=== PATIENT | female | born 1990 | race African-American/Black ===

== ENCOUNTER 2016-05-05 15:13 | Emergency (ER) | payer BC ==
[2016-05-05 15:19] VITALS: BP 148/101
--- NOTE | 2016-05-05 16:05 | ED ---
Skin Complaint - HPI Summary HPI Summary: 25 F presents with right thumb swelling near nail for 2 days. She states she had a hang nail there and pulled it and started to notice some swelling at the area. She has not taken anything for her pain. She has full ROM of her finger. She denies any numbness or tingling. She is right handed. - History of Current Complaint Chief Complaint: EDExtremityUpper Time Seen by Provider: 05/05/16 15:33 Stated Complaint: POSS CYST ON FINGER Hx Last Menstrual Period: 06/13/15 Pain Intensity: 8 - Additional Pertinent History Primary Care Physician: [id number] - Allergy/Home Medications Allergies/Adverse Reactions: Allergies Allergy/AdvReac Type Severity Reaction Status Date / Time No Known Allergies Allergy Verified 07/02/15 15:58 PMH/Surg Hx/FS Hx/Imm Hx Endocrine/Hematology History: Reports: Hx Diabetes - type I Denies: Hx Anemia Cardiovascular History: Reports: Hx Hypercholesterolemia, Hx Hypertension Denies: Hx Aneurysm, Hx Angina, Hx Angioplasty, Hx Auto Implanted Cardiovert Defib, Hx Pacemaker/ICD Respiratory History: Reports: Hx Asthma GI History: Denies: Hx Jaundice Sensory History: Reports: Hx Contacts or Glasses Denies: Hx Hearing Aid Opthamlomology History: Reports: Hx Contacts or Glasses Neurological History: Reports: Hx Migraine - optical migraines Denies: Hx Dementia, Hx Developmental Delay, Hx Headaches, Hx Nerve Disease, Hx Seizures, Hx Spinal Cord Injury, Hx Transient Ischemic Attacks (TIA), Other Neuro Impairments/Disorders Psychiatric History: Reports: Hx Anxiety, Hx Depression Denies: Hx Panic Disorder - Cancer History Hx Chemotherapy: No Hx Radiation Therapy: No Hx Palliative Cancer Treatment: No - Surgical History Surgery Procedure, Year, and Place: cyst removal from skin of face and skin of lower back Hx Anesthesia Reactions: No Infectious Disease History: No Infectious Disease History: Denies: Hx Clostridium Difficile, Hx Hepatitis, Hx Human Immunodeficiency Virus (HIV), Hx of Known/Suspected MRSA, Hx Shingles, Hx Tuberculosis, History Other Infectious Disease, Traveled Outside the [place] in Last 30 Days - Family History Known Family History: Positive: Cardiac Disease, Diabetes - Social History Alcohol Use: Daily Alcohol Amount: a lot Substance Use Type: Reports: Marijuana Smoking Status (MU): Light Every Day Tobacco Smoker Type: Cigarettes Amount Used/How Often: 2-3/day Have You Smoked in the Last Year: No Review of Systems Negative: Fever Negative: Chest Pain Negative: Shortness Of Breath Positive: Other - swelling near right thumb nail All Other Systems Reviewed And Are Negative: Yes Physical Exam Triage Information Reviewed: Yes Vital Signs On Initial Exam: Initial Vitals Temp Pulse Resp BP Pulse Ox 97.9 F 119 18 148/101 98 05/05/16 15:16 05/05/16 15:16 05/05/16 15:16 05/05/16 15:16 05/05/16 15:16 Vital Signs Reviewed: Yes Appearance: Positive: Well-Appearing Skin: Positive: Warm, Dry, Other - paronchyia of right thumb Head/Face: Positive: Normal Head/Face Inspection Eyes: Positive: Normal, Conjunctiva Clear Respiratory/Lung Sounds: Positive: Clear to Auscultation, Breath Sounds Present Cardiovascular: Positive: Normal, RRR Musculoskeletal: Positive: Strength/ROM Intact - of right thumb, Other - good capillary refill, <2 secs capillary refill Procedures - Incision and Drainage Site: right thumn Anesthesia: Digital Instrument(s): Scalpel Diagnostics - Vital Signs Vital Signs Temp Pulse Resp BP Pulse Ox 05/05/16 15:16 97.9 F 119 18 148/101 98 - Laboratory Lab Statement: Any lab studies that have been ordered have been reviewed, and results considered in the medical decision making process. Course/Dx - Course Course Of Treatment: 25F presents with right thumb swelling near nail s/p pulling a handnail. On exam has paronchyia. use digital block and made incision and expressed small amount of pus. told to do warm soaks of area. told if any signs of infection occur to return. patient understands and agrees with plan - Differential Diagnoses - Skin Complaint Differential Diagnoses: Abscess, Cellulitis, Other - paronychia - Diagnoses Provider Diagnoses: Paronychia Discharge - Discharge Plan Condition: Good Disposition: HOME Patient Education Materials: Paronychia (ED) Referrals: Bigg Reyes NP [Primary Care Provider] - Additional Instructions: Soak finger twice a day Take ibuprofen for pain every 6 hours Return to ED if develop fever, spreading redness or any new or worsening symptoms
== END 2016-05-05 16:32 | disposition home or self-care (01) ==
LOC: ED 15:13
DX: L03.011 Cellulitis of right finger (principal); R60.0 Localized edema; F17.210 Nicotine dependence, cigarettes, uncomplicated
CPT/HCPCS: 10060; 99282

== ENCOUNTER 2016-07-07 23:56 | Emergency (ER) | payer BC ==
[2016-07-08] MEDS ORDERED: Ondansetron INJ* 2 MG/ML VIAL IV ONE (00:38)
[2016-07-08] MEDS ORDERED: NS 0.9% 1000 ML* 3,000 ML IV ONE (00:38)
[2016-07-08 01:09] LABS: Hematocrit 41 % (35-47); Hemoglobin 13.4 g/dl (12.0-16.0); Mean Corpuscular HGB Conc 33 g/dl (31-36); Mean Corpuscular Hemoglobin 29 pg (27-31); Mean Corpuscular Volume 89 fL (80-97); Mean Platelet Volume 10 um3 (7.4-10.4); Red Blood Count 4.56 10^6/ul (4.0-5.4); Red Cell Distribution Width 13 % (10.5-15); White Blood Count 6.7 10^3/ul (3.5-10.8)
[2016-07-08 01:18] LABS: Alcohol 12 mg/dL (<10)
[2016-07-08 01:19] LABS: ALT 13 U/L (7-52); Albumin 3.5 g/dL (3.2-5.2); Alkaline Phosphatase 64 U/L (34-104); BUN/Creatinine Ratio 21.2 (8-20); Blood Urea Nitrogen 14 mg/dL (6-24); CO2 Carbon Dioxide 20 mmol/L (22-32); Calcium 8.9 mg/dL (8.6-10.3); Chloride 97 mmol/L (101-111); EGFR African American 141.5 (>60); Globulin 3.5 g/dL (2-4)
[2016-07-08 01:52] LABS: Urine Bacteria Absent (Absent); Urine Bilirubin Negative (Negative); Urine Glucose 3+(>=500 mg/dL) (Negative); Urine Nitrite Negative (Negative)
[2016-07-08 02:00] LABS: Glucose 563 mg/dL (70-100)
[2016-07-08] MEDS ORDERED: Insulin REGULAR(*) 1 UNITS UNIT SUBCUT ONE (02:11)
[2016-07-08] MEDS ORDERED: KCL 10 MEQ/50 ML IVPREMIX* 10 MEQ/50 ML BAG IV ONE (02:11)
[2016-07-08 02:28] LABS: BUN/Creatinine Ratio 23.3 (8-20); Calcium 8.7 mg/dL (8.6-10.3); EGFR Non-African American 122.8 (>60); Potassium 4.1 mmol/L (3.5-5.0)
--- NOTE | 2016-07-08 03:02 | ED ---
HPI Diabetic - HPI Summary HPI Summary: Pt here w/ "not feeling well", pain from chest down, especially back and legs. Nausea w/o vomiting. Increased urination. Type 1 diabetic - has not been compliant recently w/ insulin d/t difficulty affording medication. UTI a few weeks ago - tx'd w/ cipro and felt better. Notes also indicate a vaginal infection - reports treating this as well w/ relief of sx. No other illness, injury or infection to report. - History Of Current Complaint Chief Complaint: EDDiabeticProb Time Seen by Provider: 07/08/16 00:33 Hx Obtained From: Patient - Allergies/Home Medications Allergies/Adverse Reactions: Allergies Allergy/AdvReac Type Severity Reaction Status Date / Time No Known Allergies Allergy Verified 07/02/15 15:58 PMH/Surg Hx/FS Hx/Imm Hx Endocrine/Hematology History: Reports: Hx Diabetes - type I Denies: Hx Anemia Cardiovascular History: Reports: Hx Hypercholesterolemia - no meds, Hx Hypertension - no meds, poorly controlled Denies: Hx Aneurysm, Hx Angina, Hx Angioplasty, Hx Auto Implanted Cardiovert Defib, Hx Pacemaker/ICD Respiratory History: Reports: Hx Asthma - worse w/ cold air exposure and when she has tachycardia GI History: Denies: Hx Jaundice History: Reports: Other Problems/Disorders - dysmenorrhea, "clots" Sensory History: Reports: Hx Contacts or Glasses Denies: Hx Hearing Aid Opthamlomology History: Reports: Hx Contacts or Glasses Neurological History: Reports: Hx Migraine - optical migraines Denies: Hx Dementia, Hx Developmental Delay, Hx Headaches, Hx Nerve Disease, Hx Seizures, Hx Spinal Cord Injury, Hx Transient Ischemic Attacks (TIA), Other Neuro Impairments/Disorders Psychiatric History: Reports: Hx Anxiety, Hx Depression Denies: Hx Panic Disorder - Cancer History Hx Chemotherapy: No Hx Radiation Therapy: No Hx Palliative Cancer Treatment: No - Surgical History Surgery Procedure, Year, and Place: cyst removal from skin of face and skin of lower back Hx Anesthesia Reactions: No Infectious Disease History: Yes Infectious Disease History: Denies: Hx Clostridium Difficile, Hx Hepatitis, Hx Human Immunodeficiency Virus (HIV), Hx of Known/Suspected MRSA, Hx Shingles, Hx Tuberculosis, History Other Infectious Disease, Traveled Outside the [place] in Last 30 Days - Family History Known Family History: Positive: Cardiac Disease, Diabetes, Other - Mom - lupus - Social History Occupation: Employed Full-time - [employer] Alcohol Use: Daily - "I don't get drunk" Alcohol Amount: a lot Hx Substance Use: No - pt denies drug use tonight Substance Use Type: Reports: Marijuana Hx Tobacco Use: Yes Smoking Status (MU): Current Every Day Smoker Type: Cigarettes Amount Used/How Often: <1 PPD Have You Smoked in the Last Year: No Review of Systems Positive: Fatigue ENT: Negative Negative: Sore Throat, Ear Ache, Nasal Discharge Negative: Chest Pain Negative: Shortness Of Breath Positive: Nausea. Negative: Abdominal Pain, Vomiting, Diarrhea Positive: see HPI Musculoskeletal: Other - see HPI Positive: Headache Positive: Anxious All Other Systems Reviewed And Are Negative: Yes Physical Exam Triage Information Reviewed: Yes Vital Signs On Initial Exam: Initial Vitals Temp Pulse Resp BP Pulse Ox 98.4 F 123 32 209/136 100 07/07/16 23:57 07/07/16 23:57 07/07/16 23:57 07/07/16 23:57 07/07/16 23:57 Vital Signs Reviewed: Yes Appearance: Positive: Ill-Appearing - tearful, lying in bed w/ lights off, acetone breath, Pain Distress, Obese Skin: Positive: Warm, Dry Head/Face: Positive: Normal Head/Face Inspection Eyes: Positive: Normal, EOMI ENT: Positive: Hearing grossly normal Respiratory/Lung Sounds: Positive: Clear to Auscultation, Breath Sounds Present Cardiovascular: Positive: Pulses are Symmetrical in both Upper and Lower Extremities, Tachycardia, S1, S2. Negative: Murmur, Rub, Leg Edema Left - NTTP , Leg Edema Right Abdomen Description: Positive: Nontender, Soft Bowel Sounds: Positive: Present Musculoskeletal: Positive: Normal, Strength/ROM Intact Neurological: Positive: Normal, Sensory/Motor Intact, Alert, Oriented to Person Place, Time, CN Intact II-III Psychiatric: Positive: Anxious - Sharmin Coma Scale Coma Scale Total: 15 Diagnostics - Vital Signs Vital Signs Temp Pulse Resp BP Pulse Ox 07/08/16 02:30 122 96 07/08/16 02:00 161/108 07/08/16 01:30 123 98 07/08/16 01:00 120 161/115 97 07/08/16 00:39 121 98 07/08/16 00:34 170/117 07/08/16 00:01 98.3 F 123 32 209/136 100 07/07/16 23:57 98.4 F 123 32 209/136 100 - Laboratory Lab Results: Lab Results 07/08/16 07/08/16 07/08/16 Range/Units 00:25 00:25 00:25 WBC 6.7 (3.5-10.8) 10^3/ul RBC 4.56 (4.0-5.4) 10^6/ul Hgb 13.4 (12.0-16.0) g/dl Hct 41 (35-47) % MCV 89 (80-97) fL MCH 29 (27-31) pg MCHC 33 (31-36) g/dl RDW 13 (10.5-15) % Plt Count 313 (150-450) 10^3/ul MPV 10 (7.4-10.4) um3 Neut % (Auto) 51.9 (38-83) % Lymph % (Auto) 39.2 (25-47) % [place] % (Auto) 6.0 (1-9) % Eos % (Auto) 1.5 (0-6) % Baso % (Auto) 1.4 (0-2) % Absolute Neuts (auto) 3.5 (1.5-7.7) 10^3/ul Absolute Lymphs (auto) 2.6 (1.0-4.8) 10^3/ul Absolute Monos (auto) 0.4 (0-0.8) 10^3/ul Absolute Eos (auto) 0.1 (0-0.6) 10^3/ul Absolute Basos (auto) 0.1 (0-0.2) 10^3/ul Absolute Nucleated RBC 0.01 10^3/ul Nucleated RBC % 0.1 Sodium 130 L (133-145) mmol/L Potassium TNP Chloride 97 L (101-111) mmol/L Carbon Dioxide 20 L (22-32) mmol/L Anion Gap TNP BUN 14 (6-24) mg/dL Creatinine 0.66 (0.51-0.95) mg/dL Est GFR ( Amer) 141.5 (>60) Est GFR (Non-Af Amer) 110.0 (>60) BUN/Creatinine Ratio 21.2 H (8-20) Glucose 563 H* (70-100) mg/dL Lactic Acid 2.5 H* (0.5-2.0) mmol/L Calcium 8.9 (8.6-10.3) mg/dL Phosphorus 4.0 (2.5-5.0) mg/dL Total Bilirubin 0.20 (0.2-1.0) mg/dL AST TNP ALT 13 (7-52) U/L Alkaline Phosphatase 64 (34-104) U/L Total Protein 7.0 (6.4-8.9) g/dL Albumin 3.5 (3.2-5.2) g/dL Globulin 3.5 (2-4) g/dL Albumin/Globulin Ratio 1.0 (1-3) Beta HCG, Quant < 0.60 mIU/mL Urine Color Urine Appearance Urine pH (5-9) Ur Specific [place] (1.010-1.030) Urine Protein (Negative) Urine Ketones (Negative) Urine Blood (Negative) Urine Nitrate (Negative) Urine Bilirubin (Negative) Urine Urobilinogen (Negative) Ur Leukocyte Esterase (Negative) Urine WBC (Auto) (Absent) Urine RBC (Auto) (Absent) Ur Squamous Epith Cells (Absent) Urine Bacteria (Absent) Urine Glucose (Negative) Serum Alcohol 12 H (<10) mg/dL 07/08/16 07/08/16 07/08/16 Range/Units 01:30 01:30 01:42 WBC (3.5-10.8) 10^3/ul RBC (4.0-5.4) 10^6/ul Hgb (12.0-16.0) g/dl Hct (35-47) % MCV (80-97) fL MCH (27-31) pg MCHC (31-36) g/dl RDW (10.5-15) % Plt Count (150-450) 10^3/ul MPV (7.4-10.4) um3 Neut % (Auto) (38-83) % Lymph % (Auto) (25-47) % [place] % (Auto) (1-9) % Eos % (Auto) (0-6) % Baso % (Auto) (0-2) % Absolute Neuts (auto) (1.5-7.7) 10^3/ul Absolute Lymphs (auto) (1.0-4.8) 10^3/ul Absolute Monos (auto) (0-0.8) 10^3/ul Absolute Eos (auto) (0-0.6) 10^3/ul Absolute Basos (auto) (0-0.2) 10^3/ul Absolute Nucleated RBC 10^3/ul Nucleated RBC % Sodium 130 L (133-145) mmol/L Potassium 4.1 4.1 Chloride 99 L (101-111) mmol/L Carbon Dioxide 21 L (22-32) mmol/L Anion Gap 10 BUN 14 (6-24) mg/dL Creatinine 0.60 (0.51-0.95) mg/dL Est GFR ( Amer) 158.0 (>60) Est GFR (Non-Af Amer) 122.8 (>60) BUN/Creatinine Ratio 23.3 H (8-20) Glucose 543 H* (70-100) mg/dL Lactic Acid (0.5-2.0) mmol/L Calcium 8.7 (8.6-10.3) mg/dL Phosphorus (2.5-5.0) mg/dL Total Bilirubin (0.2-1.0) mg/dL AST 11 L ALT (7-52) U/L Alkaline Phosphatase (34-104) U/L Total Protein (6.4-8.9) g/dL Albumin (3.2-5.2) g/dL Globulin (2-4) g/dL Albumin/Globulin Ratio (1-3) Beta HCG, Quant mIU/mL Urine Color Colorless Urine Appearance Clear Urine pH 6.0 (5-9) Ur Specific [place] 1.021 (1.010-1.030) Urine Protein 1+(30 mg/dl) H (Negative) Urine Ketones Trace H (Negative) Urine Blood 1+ H (Negative) Urine Nitrate Negative (Negative) Urine Bilirubin Negative (Negative) Urine Urobilinogen Negative (Negative) Ur Leukocyte Esterase Negative (Negative) Urine WBC (Auto) Trace(0-5/hpf) (Absent) Urine RBC (Auto) 1+(3-5/hpf) H (Absent) Ur Squamous Epith Cells Present H (Absent) Urine Bacteria Absent (Absent) Urine Glucose 3+(>=500 mg/dl) H (Negative) Serum Alcohol (<10) mg/dL Result Diagrams: 07/08/16 00:07/08/16 01:30 Lab Statement: Any lab studies that have been ordered have been reviewed, and results considered in the medical decision making process. Re-Evaluation - Re-Evaluation First Eval Change: Improved - nausea improved - pt drank gingerale w/o difficulty; still has myalgias - WILLIAMSON better Diabetic Course/Dx - Course Course Of Treatment: Type 1 diabetic pt presents w/ generalized pain, WILLIAMSON, nausea and admitted poor compliance w/ insulin. Labs reveal elevated glucose ( 563) w/o ketoacidosis. IVF, K and insulin started. Nausea improved with IV zofran. Will order pain medication and continue IVF w/ repeat glucose and K checks. Discussed w/ pt importance of compliance and explaining to PCP she can' t afford medication to see if there are any financial programs available. Signed out to Dr. Coleman @ 3:05am. - Diagnoses Provider Diagnoses: Poorly controlled type 1 diabetes mellitus - Physician Notifications Discussed Care of Patient With: Dr. Coleman Discharge - Discharge Plan Patient Education Materials: Type 1 Diabetes in Adults (ED) Forms: *Work Release Referrals: Bigg Reyes, MICHAEL [Primary Care Provider] - Additional Instructions: Follow-up with manager product support tomorrow Stay hydrated - avoid concentrated sweets, alcohol, etc Take insulin as directed by manager product support *If your pain, weakness or high glucose return, come back to ED NOTE: your blood pressure is elevated and poorly controlled. Please discuss with PCP to asses appropriate intervention. *if you develop headache, chest pain, return to ED
[2016-07-08] MEDS ORDERED: Ibuprofen TAB* 600 MG PO ONE (03:24)
[2016-07-08 04:51] VITALS: BP 160/94
[2016-07-08 22:47] LABS: Sodium 134 mmol/L (133-145)
== END 2016-07-08 04:51 | disposition home or self-care (01) ==
LOC: ED 23:56
DX: E10.65 Type 1 diabetes mellitus with hyperglycemia (principal); R11.0 Nausea; R51 Headache; R52 Pain, unspecified
CPT/HCPCS: 36415; 80048; 80053; 80320; 81003; 81015; 83605; 84100; 84702; 85025; 93005; 96374; 99283; A9270-GY; G0480; J2405; J3480

== ENCOUNTER 2016-08-05 16:44 | Emergency (ER) | payer BC ==
[2016-08-05] MEDS ORDERED: Ketorolac INJ* 60 MG/2 ML VIAL ONE (18:02)
[2016-08-05] MEDS ORDERED: Ketorolac INJ* 60 MG/2 ML VIAL IM ONE (18:07)
--- NOTE | 2016-08-05 18:10 | ED ---
Lower Extremity - HPI Summary HPI Summary: Patient presents with 2 months of guzman pain that began without known incident or trauma. The pain is along the anterior guzman from the knee to the ankle and is worsened with dorsiflexion. She has no symptoms at rest. She denies calf pain , swelling or redness. No N/T. - History of Current Complaint Chief Complaint: EDExtremityLower Stated Complaint: BOTH LEG PAIN Hx Obtained From: Patient Hx Last Menstrual Period: 06/13/15 Mechanism Of Injury: Unknown Onset/Duration: Still Present Severity Initially: Mild Severity Currently: Moderate Pain Intensity: 6 Timing: Intermittent - when walking Character Of Pain: Aching Associated Signs And Symptoms: Positive: Negative Aggravating Factor(s): Ambulation Alleviating Factor(s): Rest Able to Bear Weight: Yes - Allergies/Home Medications Allergies/Adverse Reactions: Allergies Allergy/AdvReac Type Severity Reaction Status Date / Time Shellfish Allergy Allergy Anaphylatic Verified 08/05/16 16:47 Shock PMH/Surg Hx/FS Hx/Imm Hx Endocrine/Hematology History: Reports: Hx Diabetes - type I Denies: Hx Anemia Cardiovascular History: Reports: Hx Hypercholesterolemia - no meds, Hx Hypertension - no meds, poorly controlled Denies: Hx Aneurysm, Hx Angina, Hx Angioplasty, Hx Auto Implanted Cardiovert Defib, Hx Pacemaker/ICD Respiratory History: Reports: Hx Asthma - worse w/ cold air exposure and when she has tachycardia GI History: Denies: Hx Jaundice History: Reports: Other Problems/Disorders - dysmenorrhea, "clots" Sensory History: Reports: Hx Contacts or Glasses Denies: Hx Hearing Aid Opthamlomology History: Reports: Hx Contacts or Glasses Neurological History: Reports: Hx Migraine - optical migraines Denies: Hx Dementia, Hx Developmental Delay, Hx Headaches, Hx Nerve Disease, Hx Seizures, Hx Spinal Cord Injury, Hx Transient Ischemic Attacks (TIA), Other Neuro Impairments/Disorders Psychiatric History: Reports: Hx Anxiety, Hx Depression Denies: Hx Panic Disorder - Cancer History Hx Chemotherapy: No Hx Radiation Therapy: No Hx Palliative Cancer Treatment: No - Surgical History Surgery Procedure, Year, and Place: cyst removal from skin of face and skin of lower back Hx Anesthesia Reactions: No Infectious Disease History: No Infectious Disease History: Denies: Hx Clostridium Difficile, Hx Hepatitis, Hx Human Immunodeficiency Virus (HIV), Hx of Known/Suspected MRSA, Hx Shingles, Hx Tuberculosis, History Other Infectious Disease, Traveled Outside the [place] in Last 30 Days - Family History Known Family History: Positive: Cardiac Disease, Diabetes, Other - Mom - lupus - Social History Occupation: Employed Full-time Lives: With Family Alcohol Use: Daily Alcohol Amount: a lot Hx Substance Use: No - pt denies drug use tonight Substance Use Type: Reports: Marijuana Hx Tobacco Use: Yes Smoking Status (MU): Current Every Day Smoker Type: Cigarettes Amount Used/How Often: <1 PPD Have You Smoked in the Last Year: No Cessation Counseling: Patient Advised to Stop Review of Systems Positive: Myalgia. Negative: Decreased ROM, Edema Negative: Bruising Negative: Weakness, Paresthesia, Numbness All Other Systems Reviewed And Are Negative: Yes Physical Exam Triage Information Reviewed: Yes Vital Signs On Initial Exam: Initial Vitals Temp Pulse Resp BP Pulse Ox 97.8 F 110 16 155/97 99 08/05/16 16:45 08/05/16 16:45 08/05/16 16:45 08/05/16 16:45 08/05/16 16:45 Vital Signs Reviewed: Yes Appearance: Positive: Well-Appearing, No Pain Distress, Obese Skin: Positive: Warm, Skin Color Reflects Adequate Perfusion, Dry, Soft Head/Face: Positive: Normal Head/Face Inspection Eyes: Positive: EOMI, VIVIANE, Conjunctiva Clear ENT: Positive: Hearing grossly normal Respiratory/Lung Sounds: Positive: Breath Sounds Present Cardiovascular: Positive: RRR Musculoskeletal: Positive: Strength/ROM Intact, Pain @ - TTP over bilateral anterior tibial region L>R. Negative: Amauri Sign Left, Amauri Sign Right, Edema Left, Edema Right Neurological: Positive: Sensory/Motor Intact, Alert, Oriented to Person Place, Time, NV Bundle Intact Distally, Normal Gait Psychiatric: Positive: Affect/Mood Appropriate AVPU Assessment: Alert - Sharmin Coma Scale Coma Scale Total: 15 Diagnostics - Vital Signs Vital Signs Temp Pulse Resp BP Pulse Ox 08/05/16 16:47 97.8 F 110 16 155/97 100 08/05/16 16:45 97.8 F 110 16 155/97 99 - Laboratory Lab Statement: Any lab studies that have been ordered have been reviewed, and results considered in the medical decision making process. Lower Extremity Course/Dx - Diagnoses Differential Diagnosis/HQI/PQRI: Positive: Arthritis, Bursitis, Cellulitis, Contusion, Fracture (Closed), Sprain, Strain Provider Diagnoses: Strain of tibialis anterior muscle Discharge - Discharge Plan Condition: Stable Disposition: HOME Patient Education Materials: Guzman Splints (ED) Referrals: Bigg Reyes NP [Primary Care Provider] - Additional Instructions: Please begin taking 600mg of ibuprofen three times daily with meals tomorrow evening with dinner for the next 5-7 days. Rest your legs when you can and ice your shins several times daily. Call your primary care providers office to establish care with a new provider for a follow-up appointment. Return to the emergency department if symptoms worsen.
[2016-08-05 18:52] VITALS: BP 160/104
== END 2016-08-05 18:45 | disposition home or self-care (01) ==
LOC: ED 16:44
DX: S86.219A Strain of muscle(s) and tendon(s) of anterior muscle group at lower leg level, unspecified leg, initial encounter (principal); E10.9 Type 1 diabetes mellitus without complications; X58.XXXA Exposure to other specified factors, initial encounter; Y93.9 Activity, unspecified; Y92.9 Unspecified place or not applicable
CPT/HCPCS: 99281; J1885

== ENCOUNTER 2016-09-03 17:07 | Emergency (ER) | payer BC ==
--- NOTE | 2016-09-03 20:32 | RAD ---
HISTORY: Left lower extremity pain COMPARISONS: None relevant TECHNIQUE: Multiple transverse and longitudinal ultrasound images were obtained of the left lower extremity from the level of the common femoral vein inferiorly through to the infrapopliteal veins using grayscale, color Doppler, and spectral Doppler imaging with and without compression and with augmentation. Comparison images were obtained of the contralateral common femoral vein. FINDINGS: VEINS: The venous system of the left lower extremity is compressible throughout its course, with normal flow on color Doppler imaging and normal response to augmentation on spectral Doppler imaging. SOFT TISSUES: There are multiple left inguinal lymph nodes measuring up to 0.9 cm in short axis OTHER FINDINGS: None. IMPRESSION: 1. NO LEFT LOWER EXTREMITY DEEP VEIN THROMBOSIS 2. MULTIPLE LEFT INGUINAL LYMPH NODES AT THE UPPER LIMITS OF NORMAL IN SIZE
[2016-09-03] MEDS ORDERED: Pregabalin CAP(*) 50 MG PO ONE (20:45)
--- NOTE | 2016-09-03 20:52 | ED ---
Mario Morrissey Auryana, scribed for Bonny Mcwilliams MD on 09/03/16 at 1806 . Lower Extremity - HPI Summary HPI Summary: 25 year old female presents with LLE pain starting 1 month worse since today. Patient is located at the inner left thigh and is characterizes as a burning pain. She reports that the pain sometimes radiates through her back. She also has right foot numbness and has not been able to sleep for the last week. The pain is improved with pressure from ambulation and made worse when sitting or resting. Patient also c/o of right ear clogging. PMHx is significant for DMI ( insulin requiring - blood sugar usually 200's), and HTN. She denies any history of sciatica or any back injuries. SHx is significant for alcohol and tobacco but denies any recreational use. FHx is significant for DM, and HTN. 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 - History of Current Complaint Chief Complaint: EDExtremityLower Stated Complaint: LT LEG PAIN Time Seen by Provider: 09/03/16 17:54 Hx Obtained From: Patient Hx Last Menstrual Period: 06/13/15 Mechanism Of Injury: Unknown - NONE Onset of Pain: Days - 31 DAYS Onset/Duration: Worse Since - TODAY - STARTING 1 MONTH AGO Severity Initially: Moderate Severity Currently: Severe Pain Intensity: 8 Pain Scale Used: 0-10 Numeric Timing: Constant Location: Is Discrete @ - LLE and sometimes radiates into the back Associated Signs And Symptoms: Positive: Other - RIHGT FOOT NUMBNESS, RIGHT EAR CLOGGING Aggravating Factor(s): Other - REST/ NO MOVEMENT Alleviating Factor(s): Other - PRESSURE OF AMBULATION Able to Bear Weight: Yes - Allergies/Home Medications Allergies/Adverse Reactions: Allergies Allergy/AdvReac Type Severity Reaction Status Date / Time Shellfish Allergy Allergy Anaphylatic Verified 08/05/16 16:47 Shock PMH/Surg Hx/FS Hx/Imm Hx Endocrine/Hematology History: Reports: Hx Diabetes - type I Denies: Hx Anemia Cardiovascular History: Reports: Hx Hypercholesterolemia - no meds, Hx Hypertension - no meds, poorly controlled Denies: Hx Aneurysm, Hx Angina, Hx Angioplasty, Hx Auto Implanted Cardiovert Defib, Hx Pacemaker/ICD Respiratory History: Reports: Hx Asthma - worse w/ cold air exposure and when she has tachycardia GI History: Denies: Hx Jaundice History: Reports: Other Problems/Disorders - dysmenorrhea, "clots" Sensory History: Reports: Hx Contacts or Glasses Denies: Hx Hearing Aid Opthamlomology History: Reports: Hx Contacts or Glasses Neurological History: Reports: Hx Migraine - optical migraines Denies: Hx Dementia, Hx Developmental Delay, Hx Headaches, Hx Nerve Disease, Hx Seizures, Hx Spinal Cord Injury, Hx Transient Ischemic Attacks (TIA), Other Neuro Impairments/Disorders Psychiatric History: Reports: Hx Anxiety, Hx Depression Denies: Hx Panic Disorder - Cancer History Hx Chemotherapy: No Hx Radiation Therapy: No Hx Palliative Cancer Treatment: No - Surgical History Surgery Procedure, Year, and Place: cyst removal from skin of face and skin of lower back Hx Anesthesia Reactions: No Infectious Disease History: No Infectious Disease History: Denies: Hx Clostridium Difficile, Hx Hepatitis, Hx Human Immunodeficiency Virus (HIV), Hx of Known/Suspected MRSA, Hx Shingles, Hx Tuberculosis, History Other Infectious Disease, Traveled Outside the in Last 30 Days - Family History Known Family History: Positive: Cardiac Disease, Diabetes, Other - Mom - lupus - Social History Occupation: Employed Full-time Lives: Alone - AT [facility] Alcohol Use: Occasionally Alcohol Amount: a lot Hx Substance Use: No - pt denies drug use tonight Substance Use Type: Reports: Marijuana Hx Tobacco Use: Yes Smoking Status (MU): Current Every Day Smoker Type: Cigarettes Amount Used/How Often: <1 PPD Have You Smoked in the Last Year: No Review of Systems Constitutional: Negative Negative: Fever Eyes: Negative Positive: Other - right ear clogged Cardiovascular: Negative Respiratory: Negative Gastrointestinal: Negative Genitourinary: Negative Positive: Other - LLE pain that sometimes radiates to the back Skin: Negative Positive: Numbness - right foot Psychological: Normal All Other Systems Reviewed And Are Negative: Yes Physical Exam - Summary Physical Exam Summary: General: Well appearing, no pain distress Skin: Warm, Skin Color Reflects Adequate Perfusion, Dry Eyes: EOMI, VIVIANE ENT: Pharynx normal, TMs normal. CERUMEN RIGHT EAR. Neck: Supple, nontender Respiratory: CTA, breath sounds present, no rhonchi, no wheezes, no rales Cardiovascular: RRR, no murmur, no rub, no gallop Abdomen: Soft, nontender, Non-distended, no guarding, no rebound Bowel: Present Musculoskeletal: YUNG, No edema, erythema, or any indurations. Normal Flexion. Neuro: SLight decreased in sensation generally over the soles of the feet but otherwise sensory/motor intact, A&Ox3, CN intact 2-12. Normal DTRs. Psych: Affect/mood appropriate Triage Information Reviewed: Yes Vital Signs On Initial Exam: Initial Vitals Temp Pulse Resp BP Pulse Ox 97.9 F 106 20 171/119 99 09/03/16 17:10 09/03/16 17:10 09/03/16 17:10 09/03/16 17:10 09/03/16 17:10 Vital Signs Reviewed: Yes Diagnostics - Vital Signs Vital Signs Temp Pulse Resp BP Pulse Ox 09/03/16 17:12 98.3 F 105 20 171/119 99 09/03/16 17:10 97.9 F 106 20 171/119 99 - Laboratory Lab Statement: Any lab studies that have been ordered have been reviewed, and results considered in the medical decision making process. - Additional Comments Diagnostic Additional Comments: VL LOWER EXT VEINS LEFT- IMPRESSION: 1. NO LEFT LOWER EXTREMITY DEEP VEIN THROMBOSIS 2. MULTIPLE LEFT INGUINAL LYMPH NODES AT THE UPPER LIMITS OF NORMAL IN SIZE Lower Extremity Course/Dx - Course Course Of Treatment: 25 yo type 1 diabetic with tingling and numbness in both feet left inner thigh pain. doppler is negative and pt is being started on lyrica for her diabetic neuropathy - Diagnoses Provider Diagnoses: Neuropathy Discharge - Discharge Plan Condition: Stable Disposition: HOME Prescriptions: Pregabalin CAP(*) [Lyrica CAP(*)] 50 mg PO TID #20 cap MDD 150 Patient Education Materials: Diabetic Peripheral Neuropathy (ED) Referrals: Bigg Reyes, [employer] [Primary Care Provider] - 2 Days The documentation as recorded by the Mario goncalves Auryana accurately reflects the service I personally performed and the decisions made by me, Bonny Mcwilliams MD.
[2016-09-03] MEDS ORDERED: cloNIDine TAB* 0.1 MG PO ONE ×2 (21:52→22:50)
[2016-09-03] MEDS ORDERED: Verapamil SR CAP* 180 MG PO ONE (22:51)
[2016-09-03 23:32] LABS: Hematocrit 38 % (35-47); Hemoglobin 12.8 g/dl (12.0-16.0); Mean Corpuscular HGB Conc 33 g/dl (31-36); Mean Corpuscular Hemoglobin 30 pg (27-31); Mean Corpuscular Volume 90 fL (80-97); Mean Platelet Volume 9 um3 (7.4-10.4); Red Blood Count 4.25 10^6/ul (4.0-5.4); Red Cell Distribution Width 13 % (10.5-15); White Blood Count 9.6 10^3/ul (3.5-10.8)
[2016-09-03 23:40] LABS: Albumin 3.3 g/dL (3.2-5.2); BUN/Creatinine Ratio 26.9 (8-20); Calcium 9.1 mg/dL (8.6-10.3); EGFR African American 139.1 (>60); EGFR Non-African American 108.1 (>60); Globulin 3.7 g/dL (2-4); Total Bilirubin 0.3 mg/dL (0.2-1.0)
[2016-09-03 23:42] LABS: Potassium 4.1 mmol/L (3.5-5.0)
[2016-09-04 01:08] VITALS: BP 128/83
--- NOTE | 2016-09-04 01:48 | ED ---
wendy Morrissey Timothy, scribed for Tashi Turk on 09/03/16 at 2255 . Progress - Progress Note Progress Note: 25 year old female presents with LLE pain starting 1 month worse since today. Patient is located at the inner left thigh and is characterizes as a burning pain. She reports that the pain sometimes radiates through her back. She also has right foot numbness and has not been able to sleep for the last week. The pain is improved with pressure from ambulation and made worse when sitting or resting. Patient also c/o of right ear clogging. PMHx is significant for DMI ( insulin requiring - blood sugar usually 200's), and HTN. She denies any history of sciatica or any back injuries. SHx is significant for alcohol and tobacco but denies any recreational use. FHx is significant for DM, and HTN. 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 Pt was discharged by Dr. Mcwilliams, but prior to leaving [facility] Pt's BP increased, and therefore she could not be discharged as stable. Course/Dx - Course Course Of Treatment: Ericka Lora is a 25 yo female type 1 diabetic with tingling and numbness in both feet and left inner thigh pain. Pt medication list reviewed this visit. Pt was discharged by Dr. Mcwilliams, but prior to leaving [facility] Pt's BP increased, and therefore she could not be discharged. She will have further work up and will monitor her vital signs until stable. In the ED course she received verapamil, clonidine. After clinical examination and observation, she will be discharged home with unctrolled HTN with appropriate instructions and follow up. - Diagnoses Provider Diagnoses: Hypertension The documentation as recorded by the wendy goncalves Timothy accurately reflects the service I personally performed and the decisions made by Rosalee grider Emmanuel.
== END 2016-09-04 01:07 | disposition home or self-care (01) ==
LOC: ED 17:07
DX: I10 Essential (primary) hypertension (principal)
CPT/HCPCS: 36415; 80053; 85025; 85610; 85730; 99284; A9270-GY

== ENCOUNTER 2016-09-24 10:18 | Emergency (ER) | payer BC ==
[2016-09-24 11:10] LABS: Urine Bacteria Absent (Absent); Urine Bilirubin Negative (Negative); Urine Glucose 3+(>=500 mg/dL) (Negative); Urine Nitrite Positive (Negative)
[2016-09-24 11:33] LABS: UR Preg Internal Control QC Line Present
[2016-09-24] MEDS ORDERED: Phenazopyridine TAB* 100 MG PO ONE (12:11)
[2016-09-24] MEDS ORDERED: Sulfamethox/Trimethoprim DS 800/160* TAB PO ONE (12:11)
[2016-09-24 12:12] VITALS: BP 164/103
--- NOTE | 2016-09-24 12:16 | ED ---
Salinas Morrissey Angela, scribed for Ronaldo Ortiz MD on 09/24/16 at 1216 . Abdominal Pain/Female - HPI Summary HPI Summary: 25 y/o female with PMHx of DM presents to the ED c/o non-radiating abdominal discomfort, dysuria, and nausea x2 days. Pt reports that these symptoms feel like previous UTIs. Pt denies vaginal discharge, hematuria. LMP: August 20, 2016. Pt notes she had labs performed on August 18. - History of Current Complaint Chief Complaint: EDUrogenitalProblems Stated Complaint: POSSIBLE UTI Time Seen by Provider: 09/24/16 11:58 Hx Obtained From: Patient Hx Last Menstrual Period: 08/20/16 Onset/Duration: Gradual Onset Timing: Constant Pain Intensity: 0 Radiates: No Aggravating Factor(s): Nothing Alleviating Factor(s): Nothing Allergies/Adverse Reactions: Allergies Allergy/AdvReac Type Severity Reaction Status Date / Time Shellfish Allergy Allergy Anaphylatic Verified 08/05/16 16:47 Shock PMH/Surg Hx/FS Hx/Imm Hx Endocrine/Hematology History: Reports: Hx Diabetes - type I Denies: Hx Anemia Cardiovascular History: Reports: Hx Hypercholesterolemia - no meds, Hx Hypertension - no meds, poorly controlled Denies: Hx Aneurysm, Hx Angina, Hx Angioplasty, Hx Auto Implanted Cardiovert Defib, Hx Pacemaker/ICD Respiratory History: Reports: Hx Asthma - worse w/ cold air exposure and when she has tachycardia GI History: Denies: Hx Jaundice History: Reports: Other Problems/Disorders - dysmenorrhea, "clots" Sensory History: Reports: Hx Contacts or Glasses Denies: Hx Hearing Aid Opthamlomology History: Reports: Hx Contacts or Glasses Neurological History: Reports: Hx Migraine - optical migraines Denies: Hx Dementia, Hx Developmental Delay, Hx Headaches, Hx Nerve Disease, Hx Seizures, Hx Spinal Cord Injury, Hx Transient Ischemic Attacks (TIA), Other Neuro Impairments/Disorders Psychiatric History: Reports: Hx Anxiety, Hx Depression Denies: Hx Panic Disorder - Cancer History Hx Chemotherapy: No Hx Radiation Therapy: No Hx Palliative Cancer Treatment: No - Surgical History Surgery Procedure, Year, and Place: cyst removal from skin of face and skin of lower back Hx Anesthesia Reactions: No - Immunization History Date of Tetanus Vaccine: UTD Date of Influenza Vaccine: UTD Infectious Disease History: Denies: Hx Clostridium Difficile, Hx Hepatitis, Hx Human Immunodeficiency Virus (HIV), Hx of Known/Suspected MRSA, Hx Shingles, Hx Tuberculosis, History Other Infectious Disease, Traveled Outside the [place] in Last 30 Days - Family History Known Family History: Positive: Cardiac Disease, Diabetes, Other - Mom - lupus - Social History Alcohol Use: Occasionally Alcohol Amount: a lot Hx Substance Use: No - pt denies drug use tonight Substance Use Type: Reports: Marijuana Hx Tobacco Use: Yes Smoking Status (MU): Current Every Day Smoker Type: Cigarettes Amount Used/How Often: <1 PPD Have You Smoked in the Last Year: No Review of Systems Negative: Fever Positive: Abdominal Pain, Nausea Positive: dysuria, other - NEGATIVE: vaginal discharge. Negative: hematuria All Other Systems Reviewed And Are Negative: Yes Physical Exam - Summary Physical Exam Summary: General: well-appearing, no pain distress Skin: warm, color reflects adequate perfusion, dry Head: normal Eyes: EOMI, VIVIANE ENT: normal Neck: supple, nontender Respiratory: CTA, breath sounds present Cardiovascular: RRR Abdomen: soft, tenderness to palpation in suprapubic area. Bowel: present Musculoskeletal: normal, strength/ROM intact Neurological: normal, sensory/motor intact, A&O x3 Psychological: affect/mood appropriate Triage Information Reviewed: Yes Vital Signs On Initial Exam: Initial Vitals Temp Pulse Resp BP Pulse Ox 97.8 F 106 17 158/106 99 09/24/16 10:30 09/24/16 10:30 09/24/16 10:30 09/24/16 10:30 09/24/16 10:30 Vital Signs Reviewed: Yes Diagnostics - Vital Signs Vital Signs Temp Pulse Resp BP Pulse Ox 09/24/16 10:30 97.8 F 106 17 158/106 99 - Laboratory Lab Results: Lab Results 09/24/16 Range/Units 10:40 Urine Color Straw Urine Appearance Cloudy Urine pH 6.0 (5-9) Ur Specific [place] 1.027 (1.010-1.030) Urine Protein 2+(100 mg/dl) H (Negative) Urine Ketones Negative (Negative) Urine Blood 1+ H (Negative) Urine Nitrate Positive H (Negative) Urine Bilirubin Negative (Negative) Urine Urobilinogen Negative (Negative) Ur Leukocyte Esterase 3+ H (Negative) Urine WBC (Auto) 3+(>20/hpf) H (Absent) Urine RBC (Auto) 3+(>10/hpf) H (Absent) Ur Squamous Epith Cells Present H (Absent) Urine Bacteria Absent (Absent) Urine Glucose 3+(>=500 mg/dl) H (Negative) Urine Test Negative (Negative) Lab Statement: Any lab studies that have been ordered have been reviewed, and results considered in the medical decision making process. Abdominal Pain Fem Course/Dx - Course Course Of Treatment: RX BACTRIM AND PYRIDIUM. PATIENT DENIES C/O STI AND SHE HAD RECENT EVAL ON 09/16/16 AND 09/18/16 WITH NEGATIVE RESULTS. - Diagnoses Provider Diagnoses: UTI (urinary tract infection), Hypertension Discharge - Discharge Plan Condition: Stable Disposition: HOME Prescriptions: Phenazopyridine 200 mg (NF) [Pyridium 200 MG tab *] 200 mg PO TID PRN #8 tab PRN Reason: Pain Sulfamethox/Trimethoprim DS* [Bactrim DS 800/160 TAB*] 1 tab PO BID #19 tab Patient Education Materials: Urinary Tract Infection in Women (ED), Hypertension (ED) Referrals: Aguilar Rivera MD [Primary Care Provider] - Additional Instructions: FOLLOW UP WITH YOUR DOCTOR IF YOUR SYMPTOMS DO NOT IMPROVE AND FOR YOUR HYPERTENSION. RETURN TO THE EMERGENCY DEPARTMENT FOR ANY WORSENING OF YOUR CONDITION; PAIN, FEVER, YOU FEEL ILL OR QUESTIONS OR CONCERNS. The documentation as recorded by the Salinas goncalves Angela accurately reflects the service I personally performed and the decisions made by me, Ronaldo Ortiz MD.
--- NOTE | 2016-09-26 09:20 | PN ---
Progress Note - Progress Note Date of Service: 09/26/16 Note: Patient urine culture grew E coli>100,000. patient placed on bactrim. will wait for final culture.
== END 2016-09-24 12:25 | disposition home or self-care (01) ==
LOC: ED 10:18
DX: N39.0 Urinary tract infection, site not specified (principal); R10.9 Unspecified abdominal pain; R11.0 Nausea; R30.0 Dysuria; F17.210 Nicotine dependence, cigarettes, uncomplicated; I10 Essential (primary) hypertension
CPT/HCPCS: 81003; 81015; 81025; 87077; 87086; 87186; 99282; A9270-GY

== ENCOUNTER 2016-09-28 00:28 | Emergency (ER) | payer BC ==
[2016-09-28] MEDS ORDERED: NS 0.9% 1000 ML* 2,000 ML IV ONE (02:07)
[2016-09-28] MEDS ORDERED: Ondansetron INJ* 2 MG/ML VIAL IV ONE (02:09)
--- NOTE | 2016-09-28 02:14 | ED ---
Complex/Multi-Sys Presentation - HPI Summary HPI Summary: Pt here w/ Lt sole of foot pain - feels like something is in here since walking on sister's deck and got a splinter 2 days ago. Attempted to remove this but not sure if she got it all out. Reports overall not feeling well w/ subjective fever/chills and nausea w/ vomiting since this morning. She admits she has Type 1 diabetes - uses insulin but levels are all over the place. She has been taking cipro for the past 4 days as well for UTI - also taking pyridium. - History Of Current Complaint Chief Complaint: EDExtremityLower Time Seen by Provider: 09/28/16 02:01 Hx Obtained From: Patient - Allergies/Home Medications Allergies/Adverse Reactions: Allergies Allergy/AdvReac Type Severity Reaction Status Date / Time Shellfish Allergy Allergy Anaphylatic Verified 09/28/16 00:32 Shock PMH/Surg Hx/FS Hx/Imm Hx Previously Healthy: Yes Endocrine/Hematology History: Reports: Hx Diabetes - type I Denies: Hx Anemia Cardiovascular History: Reports: Hx Hypercholesterolemia - no meds, Hx Hypertension - no meds, poorly controlled Denies: Hx Aneurysm, Hx Angina, Hx Angioplasty, Hx Auto Implanted Cardiovert Defib, Hx Pacemaker/ICD Respiratory History: Reports: Hx Asthma - worse w/ cold air exposure and when she has tachycardia GI History: Denies: Hx Jaundice History: Reports: Other Problems/Disorders - dysmenorrhea, "clots" Sensory History: Reports: Hx Contacts or Glasses Denies: Hx Hearing Aid Opthamlomology History: Reports: Hx Contacts or Glasses Neurological History: Reports: Hx Migraine - optical migraines Denies: Hx Dementia, Hx Developmental Delay, Hx Headaches, Hx Nerve Disease, Hx Seizures, Hx Spinal Cord Injury, Hx Transient Ischemic Attacks (TIA), Other Neuro Impairments/Disorders Psychiatric History: Reports: Hx Anxiety, Hx Depression Denies: Hx Panic Disorder - Cancer History Hx Chemotherapy: No Hx Radiation Therapy: No Hx Palliative Cancer Treatment: No - Surgical History Surgery Procedure, Year, and Place: cyst removal from skin of face and skin of lower back Hx Anesthesia Reactions: No - Immunization History Date of Tetanus Vaccine: UTD Date of Influenza Vaccine: UTD Infectious Disease History: No Infectious Disease History: Denies: Hx Clostridium Difficile, Hx Hepatitis, Hx Human Immunodeficiency Virus (HIV), Hx of Known/Suspected MRSA, Hx Shingles, Hx Tuberculosis, History Other Infectious Disease, Traveled Outside the [place] in Last 30 Days - Family History Known Family History: Positive: Cardiac Disease, Diabetes, Other - Mom - lupus - Social History Lives: [facility]mediate - [facility]" Alcohol Use: Occasionally Alcohol Amount: a lot Hx Substance Use: No - pt denies drug use tonight Substance Use Type: Reports: Marijuana Hx Tobacco Use: Yes Smoking Status (MU): Current Every Day Smoker Type: Cigarettes Amount Used/How Often: 3 cigs per day Have You Smoked in the Last Year: No Review of Systems Constitutional: Other - see HPI Negative: Chest Pain Negative: Shortness Of Breath Positive: Vomiting - see HPI, Nausea Positive: see HPI Positive: Edema - foot Skin: Other - see HPI Neurological: Negative Negative: Weakness, Paresthesia, Numbness Positive: Anxious All Other Systems Reviewed And Are Negative: Yes Physical Exam Triage Information Reviewed: Yes Vital Signs On Initial Exam: Initial Vitals Temp Pulse Resp BP Pulse Ox 98.1 F 101 18 159/103 99 09/28/16 00:33 09/28/16 00:33 09/28/16 00:33 09/28/16 00:33 09/28/16 00:33 Vital Signs Reviewed: Yes Appearance: Positive: Ill-Appearing - leaning over emesis bucket, vomiting, Pain Distress, Obese Skin: Positive: Warm, Dry - small dark FB retained in superficial skin of Lt plantar surface over MT arch area - TTP w/ mild erythema - no streaking Head/Face: Positive: Normal Head/Face Inspection Eyes: Positive: Other: - sclera injected ENT: Positive: Hearing grossly normal Respiratory/Lung Sounds: Positive: Breath Sounds Present Cardiovascular: Positive: Normal, Pulses are Symmetrical in both Upper and Lower Extremities Musculoskeletal: Positive: Strength/ROM Intact Neurological: Positive: Normal, Sensory/Motor Intact, Alert, Oriented to Person Place, Time, CN Intact II-III Psychiatric: Positive: Anxious - tearful Diagnostics - Vital Signs Vital Signs Temp Pulse Resp BP Pulse Ox 09/28/16 00:33 98.1 F 101 18 159/103 99 - Laboratory Lab Statement: Any lab studies that have been ordered have been reviewed, and results considered in the medical decision making process. Complex Multi-Symp Course/Dx Course Of Treatment: Pt presents w/ FB in Lt plantar surface of foot x 2 days. Feels sick today. Type 1 diabetes w/ poor control. Assessing labs for infection and glucose control. Ordered IVF, zofran and toradol for pain. Signed out to Dr. Coleman at 2:55am. - Diagnoses Provider Diagnoses: Foreign body in left foot, Vomiting, Diabetes type 1, uncontrolled Discharge - Discharge Plan Condition: Stable Disposition: OTHER Discharge Disposition Comment: signed out to Dr. Coleman at 2:55am
[2016-09-28] MEDS ORDERED: Ketorolac INJ* 30 MG/ML 1 ML VIAL IV PUSH ONE (02:55)
[2016-09-28 03:01] LABS: Hematocrit 39 % (35-47); Hemoglobin 12.9 g/dl (12.0-16.0); Mean Corpuscular HGB Conc 33 g/dl (31-36); Mean Corpuscular Hemoglobin 30 pg (27-31); Mean Corpuscular Volume 90 fL (80-97); Mean Platelet Volume 9 um3 (7.4-10.4); Red Blood Count 4.34 10^6/ul (4.0-5.4); Red Cell Distribution Width 13 % (10.5-15); White Blood Count 6.9 10^3/ul (3.5-10.8)
[2016-09-28 03:11] LABS: Albumin 3.6 g/dL (3.2-5.2); BUN/Creatinine Ratio 12.2 (8-20); C Reactive Protein 2.5 mg/L (< 5.00); Calcium 8.7 mg/dL (8.6-10.3); EGFR African American 89.7 (>60); EGFR Non-African American 69.7 (>60); Globulin 3.9 g/dL (2-4); Potassium 4.1 mmol/L (3.5-5.0); Total Bilirubin 0.2 mg/dL (0.2-1.0); Total Protein 7.5 g/dL (6.4-8.9)
[2016-09-28] MEDS ORDERED: Insulin REGULAR(*) 1 UNITS UNIT SUBCUT ONE (03:23)
[2016-09-28 05:36] VITALS: BP 139/86
== END 2016-09-28 05:30 ==
LOC: ED 00:28
DX: S90.852A Superficial foreign body, left foot, initial encounter (principal); W45.8XXA Other foreign body or object entering through skin, initial encounter; Y93.01 Activity, walking, marching and hiking; Y92.008 Other place in unspecified non-institutional (private) residence as the place of occurrence of the external cause; R11.10 Vomiting, unspecified; E10.65 Type 1 diabetes mellitus with hyperglycemia; Z79.4 Long term (current) use of insulin; G43.819 Other migraine, intractable, without status migrainosus; F41.9 Anxiety disorder, unspecified; F32.9 Major depressive disorder, single episode, unspecified; F12.90 Cannabis use, unspecified, uncomplicated; F17.210 Nicotine dependence, cigarettes, uncomplicated
CPT/HCPCS: 36415; 80053; 83605; 85025; 86140; 96361; 96372; 96374; 96375; 99282; J1885; J2405

== ENCOUNTER → 2016-12-29 15:16 | Emergency (ER) | payer BC ==
[2016-12-29 15:20] VITALS: BP 146/95
== END | disposition home or self-care (01) ==
LOC: ED 15:16
DX: R05 Cough (principal); Z53.21 Procedure and treatment not carried out due to patient leaving prior to being seen by health care provider

== ENCOUNTER 2017-02-06 04:26 | Observation (INO) | payer BC ==
[2017-02-06] MEDS ORDERED: NS 0.9% 1000 ML* 2,000 ML IV ONE (04:54)
[2017-02-06] MEDS ORDERED: LORazepam INJ* 2 MG/ML 1 ML VIAL ONE ×2 (05:00→05:13)
[2017-02-06] MEDS ORDERED: LORazepam INJ* 2 MG/ML 1 ML VIAL IV PUSH ONE (05:04)
[2017-02-06] MEDS ORDERED: diPHENhydraMINE IV* 50 MG/ML 1 ml VIAL (BENADRYL) ONE (05:13)
[2017-02-06] MEDS ORDERED: Haloperidol INJ IV/IM* 5 MG/ML AMP ONE (05:13)
[2017-02-06] MEDS ORDERED: Adenosine* 3 MG/ML VIAL ONE (05:16)
[2017-02-06 05:30] LABS: Hematocrit 41 % (35-47); Hemoglobin 13.8 g/dl (12.0-16.0); Mean Corpuscular HGB Conc 34 g/dl (31-36); Mean Corpuscular Hemoglobin 31 pg (27-31); Mean Corpuscular Volume 91 fL (80-97); Mean Platelet Volume 10 um3 (7.4-10.4); Red Blood Count 4.52 10^6/ul (4.0-5.4); Red Cell Distribution Width 13 % (10.5-15); White Blood Count 11.1 10^3/ul (3.5-10.8)
[2017-02-06 06:03] LABS: Acetaminophen < 15 mcg/mL; Alcohol 173 mg/dL (<10); Salicylate < 2.50 mg/dL (<30)
[2017-02-06 06:05] LABS: ALT 13 U/L (7-52); AST 12 U/L (13-39); Alkaline Phosphatase 69 U/L (34-104); Anion Gap 16 mmol/L (2-11); BUN/Creatinine Ratio 18.2 (8-20); Blood Urea Nitrogen 14 mg/dL (6-24); C Reactive Protein 3.04 mg/L (< 5.00); CO2 Carbon Dioxide 17 mmol/L (22-32); Calcium 9.6 mg/dL (8.6-10.3); Chloride 95 mmol/L (101-111); EGFR African American 117.5 (>60); EGFR Non-African American 91.3 (>60); Globulin 4.1 g/dL (2-4); Potassium 3.7 mmol/L (3.5-5.0); Sodium 128 mmol/L (133-145); Total Protein 8.1 g/dL (6.4-8.9)
[2017-02-06 06:09] LABS: Glucose 611 mg/dL (70-100)
[2017-02-06] MEDS ORDERED: Insulin REGULAR(*) 1 UNITS UNIT IV PUSH ONE (06:09)
[2017-02-06 06:23] LABS: TSH (Thyroid Stimulating Horm) 0.65 mcIU/mL (0.34-5.60)
[2017-02-06 06:48] LABS: Venous Bicarbonate HCO3 15.5 mmol/L (24-28)
[2017-02-06] MEDS ORDERED: NS 0.9% 1000 ML* 1,000 ML IV ONE (07:02)
--- NOTE | 2017-02-06 07:06 | ED ---
Balwinder Morrissey Tiffany, scribed for Tashi Turk on 02/06/17 at 0502 . HPI Diabetic - HPI Summary HPI Summary: This patient is a 26 year old F presenting to [facility] with a chief complaint of high blood sugar since minutes ago. The patient rates the pain 6/10 in severity. Symptoms aggravated by nothing. Symptoms alleviated by nothing. Patient reports left leg pain and nausea. The patient is agitated, crying and screaming at time of evaluation. - History Of Current Complaint Chief Complaint: EDGeneral Time Seen by Provider: 02/06/17 05:00 Hx Obtained From: Patient Onset/Duration: Lasting Minutes, Still Present Severity Currently: Moderate - 6/10 Aggravating: Nothing Alleviating: Nothing - Allergies/Home Medications Allergies/Adverse Reactions: Allergies Allergy/AdvReac Type Severity Reaction Status Date / Time Shellfish Allergy Allergy Anaphylatic Verified 09/28/16 00:32 Shock PMH/Surg Hx/FS Hx/Imm Hx Previously Healthy: No Endocrine/Hematology History: Reports: Hx Diabetes - type I Denies: Hx Anemia Cardiovascular History: Reports: Hx Hypercholesterolemia - no meds, Hx Hypertension - no meds, poorly controlled Denies: Hx Aneurysm, Hx Angina, Hx Angioplasty, Hx Auto Implanted Cardiovert Defib, Hx Pacemaker/ICD Respiratory History: Reports: Hx Asthma - worse w/ cold air exposure and when she has tachycardia GI History: Denies: Hx Jaundice History: Reports: Other Problems/Disorders - dysmenorrhea, "clots" Sensory History: Reports: Hx Contacts or Glasses Denies: Hx Hearing Aid Opthamlomology History: Reports: Hx Contacts or Glasses Neurological History: Reports: Hx Migraine - optical migraines Denies: Hx Dementia, Hx Developmental Delay, Hx Headaches, Hx Nerve Disease, Hx Seizures, Hx Spinal Cord Injury, Hx Transient Ischemic Attacks (TIA), Other Neuro Impairments/Disorders Psychiatric History: Reports: Hx Anxiety, Hx Depression Denies: Hx Panic Disorder - Cancer History Hx Chemotherapy: No Hx Radiation Therapy: No Hx Palliative Cancer Treatment: No - Surgical History Surgery Procedure, Year, and Place: cyst removal from skin of face and skin of lower back Hx Anesthesia Reactions: No - Immunization History Date of Tetanus Vaccine: UTD Date of Influenza Vaccine: UTD Infectious Disease History: No Infectious Disease History: Denies: Hx Clostridium Difficile, Hx Hepatitis, Hx Human Immunodeficiency Virus (HIV), Hx of Known/Suspected MRSA, Hx Shingles, Hx Tuberculosis, History Other Infectious Disease, Traveled Outside the [place] in Last 30 Days - Family History Known Family History: Positive: Cardiac Disease, Diabetes, Other - Mom - lupus - Social History Alcohol Use: Weekly Alcohol Amount: a lot Hx Substance Use: No - pt denies drug use tonight Substance Use Type: Reports: Marijuana Hx Tobacco Use: Yes Smoking Status (MU): Current Every Day Smoker Type: Cigarettes Amount Used/How Often: 3 cigs per day Have You Smoked in the Last Year: No Review of Systems Positive: Other - High blood sugar Positive: Nausea Positive: Other - Left leg pain Positive: Other - Agitated, crying, screaming All Other Systems Reviewed And Are Negative: Yes Physical Exam - Summary Physical Exam Summary: Appearance: patient is agitated Skin: warm, dry, reflects adequate perfusion Head/face: normal Eyes: EOMI, VIVIANE ENT: normal Neck: supple, non-tender Respiratory: tachycardia Cardiovascular: RRR, pulses symmetrical Abdomen: non-tender, soft Bowel: present Musculoskeletal: normal, strength/ROM intact Neuro: normal, sensory motor intact, A&Ox3 Triage Information Reviewed: Yes Vital Signs On Initial Exam: Initial Vitals Temp Pulse Resp BP Pulse Ox 98 F 147 22 202/136 99 02/06/17 04:31 02/06/17 04:31 02/06/17 04:31 02/06/17 04:31 02/06/17 04:31 Vital Signs Reviewed: Yes Diagnostics - Vital Signs Vital Signs Temp Pulse Resp BP Pulse Ox 02/06/17 04:31 98 F 147 22 202/136 99 - Laboratory Lab Results: Lab Results 02/06/17 02/06/17 02/06/17 Range/Units 04:52 04:52 04:52 WBC 11.1 H (3.5-10.8) 10^3/ul RBC 4.52 (4.0-5.4) 10^6/ul Hgb 13.8 (12.0-16.0) g/dl Hct 41 (35-47) % MCV 91 (80-97) fL MCH 31 (27-31) pg MCHC 34 (31-36) g/dl RDW 13 (10.5-15) % Plt Count 354 (150-450) 10^3/ul MPV 10 (7.4-10.4) um3 Neut % (Auto) 53.1 (38-83) % Lymph % (Auto) 37.5 (25-47) % [place] % (Auto) 6.7 (1-9) % Eos % (Auto) 1.7 (0-6) % Baso % (Auto) 1.0 (0-2) % Absolute Neuts (auto) 5.9 (1.5-7.7) 10^3/ul Absolute Lymphs (auto) 4.2 (1.0-4.8) 10^3/ul Absolute Monos (auto) 0.7 (0-0.8) 10^3/ul Absolute Eos (auto) 0.2 (0-0.6) 10^3/ul Absolute Basos (auto) 0.1 (0-0.2) 10^3/ul Absolute Nucleated RBC 0 10^3/ul Nucleated RBC % 0 VBG pH (7.33-7.43) VBG pCO2 (41-51) mmHg VBG pO2 (35-45) mmHg VBG HCO3 (24-28) mmol/L VBG O2 Saturation (70-80) % VBG Base Excess (0-4) Sodium 128 L (133-145) mmol/L Potassium 3.7 (3.5-5.0) mmol/L Chloride 95 L (101-111) mmol/L Carbon Dioxide 17 L (22-32) mmol/L Anion Gap 16 H (2-11) mmol/L BUN 14 (6-24) mg/dL Creatinine 0.77 (0.51-0.95) mg/dL Est GFR ( Amer) 117.5 (>60) Est GFR (Non-Af Amer) 91.3 (>60) BUN/Creatinine Ratio 18.2 (8-20) Glucose 611 H* (70-100) mg/dL Lactic Acid 4.3 H* (0.5-2.0) mmol/L Calcium 9.6 (8.6-10.3) mg/dL Total Bilirubin 0.30 (0.2-1.0) mg/dL AST 12 L (13-39) U/L ALT 13 (7-52) U/L Alkaline Phosphatase 69 (34-104) U/L C-Reactive Protein 3.04 (< 5.00) mg/L Total Protein 8.1 (6.4-8.9) g/dL Albumin 4.0 (3.2-5.2) g/dL Globulin 4.1 H (2-4) g/dL Albumin/Globulin Ratio 1.0 (1-3) TSH 0.65 (0.34-5.60) mcIU/mL Beta HCG, Quant < 0.60 mIU/mL Salicylates < 2.50 (<30) mg/dL Acetaminophen < 15 mcg/mL Serum Alcohol 173 H (<10) mg/dL 02/06/17 Range/Units 06:34 WBC (3.5-10.8) 10^3/ul RBC (4.0-5.4) 10^6/ul Hgb (12.0-16.0) g/dl Hct (35-47) % MCV (80-97) fL MCH (27-31) pg MCHC (31-36) g/dl RDW (10.5-15) % Plt Count (150-450) 10^3/ul MPV (7.4-10.4) um3 Neut % (Auto) (38-83) % Lymph % (Auto) (25-47) % [place] % (Auto) (1-9) % Eos % (Auto) (0-6) % Baso % (Auto) (0-2) % Absolute Neuts (auto) (1.5-7.7) 10^3/ul Absolute Lymphs (auto) (1.0-4.8) 10^3/ul Absolute Monos (auto) (0-0.8) 10^3/ul Absolute Eos (auto) (0-0.6) 10^3/ul Absolute Basos (auto) (0-0.2) 10^3/ul Absolute Nucleated RBC 10^3/ul Nucleated RBC % VBG pH 7.24 L (7.33-7.43) VBG pCO2 34 L (41-51) mmHg VBG pO2 63 H (35-45) mmHg VBG HCO3 15.5 L (24-28) mmol/L VBG O2 Saturation 92.1 H (70-80) % VBG Base Excess -11.8 L (0-4) Sodium (133-145) mmol/L Potassium (3.5-5.0) mmol/L Chloride (101-111) mmol/L Carbon Dioxide (22-32) mmol/L Anion Gap (2-11) mmol/L BUN (6-24) mg/dL Creatinine (0.51-0.95) mg/dL Est GFR ( Amer) (>60) Est GFR (Non-Af Amer) (>60) BUN/Creatinine Ratio (8-20) Glucose (70-100) mg/dL Lactic Acid (0.5-2.0) mmol/L Calcium (8.6-10.3) mg/dL Total Bilirubin (0.2-1.0) mg/dL AST (13-39) U/L ALT (7-52) U/L Alkaline Phosphatase (34-104) U/L C-Reactive Protein (< 5.00) mg/L Total Protein (6.4-8.9) g/dL Albumin (3.2-5.2) g/dL Globulin (2-4) g/dL Albumin/Globulin Ratio (1-3) TSH (0.34-5.60) mcIU/mL Beta HCG, Quant mIU/mL Salicylates (<30) mg/dL Acetaminophen mcg/mL Serum Alcohol (<10) mg/dL Result Diagrams: 02/06/17 04:52 02/06/17 04:52 Lab Statement: Any lab studies that have been ordered have been reviewed, and results considered in the medical decision making process. - EKG 04:56 Cardiac Rate: NL EKG Rhythm: Sinus Tachycardia - 129 BPM Diabetic Course/Dx - Course Course Of Treatment: This patient is a 26 year old F presenting to [facility] with a chief complaint of high blood sugar since minutes ago. An EKG reveals sinus tachycardia (129 BPM). Bloodwork/UA obtained. Patient had elevated glucose. She was given Ativan and insulin. She was sedated with medication. Patient had to be restrained. Patient will be admitted to incoming hospitalist at shift change , pending CXR report. - Diagnoses Differential Dx: Diabetic Ketoacidosis, Hyperglycemia, Hyperosmolar State, Sepsis Provider Diagnoses: Hyperglycemia, Alcohol intoxication, Psychosis, DKA (diabetic ketoacidoses) Discharge - Discharge Plan Condition: Fair Disposition: ADMITTED TO [facility] Referrals: Aguilar Rivera MD [Primary Care Provider] - The documentation as recorded by the Balwinder goncalves Tiffany accurately reflects the service I personally performed and the decisions made by me, Tashi Turk.
[2017-02-06 07:10] LABS: Urine Bacteria Absent (Absent); Urine Bilirubin Negative (Negative); Urine Glucose 3+(>=500 mg/dL) (Negative); Urine Nitrite Negative (Negative)
[2017-02-06] MEDS ORDERED: Insulin REGULAR(*) 100 UNITS in NS 0.9% 100 ML* 100 ML IVPB SCH ×2 (07:30→10:00)
[2017-02-06 07:43] LABS: Benzodiazepine Urine Screen None Detected (None Detect)
[2017-02-06] MEDS ORDERED: NS 0.9% w/ 40 Meq KCL 1000 ML* 1,000 ML IV SCH (08:00)
[2017-02-06] MEDS ORDERED: Insulin REGULAR(*) 100 UNITS in NS 0.9% 100 ML* 100 ML IV SCH ×5 (08:00→10:00)
[2017-02-06 08:14] LABS: Acetaminophen < 15 mcg/mL; Alcohol 109 mg/dL (<10); Salicylate < 2.50 mg/dL (<30)
[2017-02-06 09:14] LABS: Hematocrit 35 % (35-47); Mean Corpuscular HGB Conc 34 g/dl (31-36); Mean Corpuscular Hemoglobin 31 pg (27-31); Mean Corpuscular Volume 90 fL (80-97); Mean Platelet Volume 9 um3 (7.4-10.4); Red Blood Count 3.92 10^6/ul (4.0-5.4); Red Cell Distribution Width 12 % (10.5-15)
[2017-02-06 09:25] LABS: BUN/Creatinine Ratio 19.7 (8-20); Calcium 8.4 mg/dL (8.6-10.3); EGFR African American 140.3 (>60); EGFR Non-African American 109.1 (>60); Potassium 3.3 mmol/L (3.5-5.0)
--- NOTE | 2017-02-06 10:27 | RAD ---
Indication: Shortness of breath. Single frontal view of the chest performed at 0640 hours was reviewed. Comparison is made with previous exam dated November 19, 2015. No mediastinal shift is noted. Heart is of normal size and configuration. Lung batres appear clear. No alveolar consolidation is noted. IMPRESSION: NO ACTIVE CARDIOPULMONARY DISEASE IS NOTED.
--- NOTE | 2017-02-06 10:40 | HP ---
CC: Aguilar Rivera MD * HISTORY AND PHYSICAL: DATE OF ADMISSION: 02/06/17 PRIMARY CARE PROVIDER: Aguilar Rivera MD. ADMITTING PROVIDER: RONEY Rubio. SUPERVISING PHYSICIAN: Aguilar Rivera MD * (DICTATED BY RONEY RUBIO) CHIEF COMPLAINT: Request for help. HISTORY OF PRESENT ILLNESS: This is a 26-year-old female with poorly controlled type 1 diabetes as well as hypertension and asthma who presented to the emergency department requesting help. The patient drove herself to the ER and in triage became hysterical, crying and yelling. She became combative with staff and received sedating medications after being placed in restraints. Labs were drawn and the patient was found to be in DKA. Admission was requested from emergency department provider. Additional history is not available at this time. Of note, the patient was admitted under similar circumstances just over a year ago, November 2015. Her last hemoglobin A1c from almost a year ago was 15.7%. PAST MEDICAL HISTORY: 1. Type 1 diabetes - very poor control. 2. Hypertension. 3. Asthma. PAST SURGICAL HISTORY: None. HOME MEDICATIONS: Unable to verify at this time, we will contact the patient's pharmacy later in the day. 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 She has a likely history of alcoholism and has previously denied illicit drug use. REVIEW OF SYSTEMS: Unable to obtain. PHYSICAL EXAMINATION GENERAL: This is a 26-year-old -[place] female who appears to be resting comfortably. She is quite sedated and does open her eyes to light touch and voice, but is unable to provide history or even answer yes or no questions at this time. VITAL SIGNS: Most recent vitals; temperature 98 degrees Fahrenheit, pulse 105 beats per minute, respiratory rate 22, oxygen saturation 99% on room air, blood pressure 96/74. Vitals at the time of presentation to the emergency department shows temperature of 98 degrees Fahrenheit, pulse 147 beats per minute, respiratory rate 22, oxygen saturation 99%, blood pressure 202/136 mmHg. HEENT: Head is normocephalic, atraumatic. RESPIRATORY: Lungs are clear to auscultation without wheezes, crackles, or rhonchi. CARDIOVASCULAR: Heart has a regular rate and rhythm without murmurs, rubs, or gallops. ABDOMEN: Soft, slightly distended, but does not appears to cause any pain on palpation. EXTREMITIES: No edema appreciated. SKIN: No concerning rashes or lesions. There are a few tattoos present. PSYCH: The patient is not alert and unable to assess orientation. LABORATORY DATA: CBC shows white blood cell count of 11,100, hemoglobin of 13.8 g/dL and platelet count of 354,000. Venous blood gas shows pH 7.24, pCO2 of 34, bicarbonate of 15.5. Comprehensive metabolic panel shows sodium of 128 mmol/L, potassium 3.7, serum bicarb of 17, anion gap 16, BUN 14, creatinine of 0.77, glucose is 611, lactic acid of 4.3. Transaminases and total bilirubin within normal limits. TSH normal at 0.65 and beta hCG is negative. Urinalysis is positive for ketones, blood, white blood cells, red blood cells and glucose. Toxicology screen is negative with the exception of serum alcohol level of 173. HOSPITAL IMAGIN. Chest x-ray - per personal review, this is a poor quality film and appears to be in inspiratory phase, but there is no obvious gross pathology. 2. EKG demonstrates sinus tachycardia without acute ischemic changes. ASSESSMENT AND PLAN: This is a 26-year-old female with poorly controlled type 1 diabetes who presented to the emergency department requesting help and quickly became agitated requiring chemical and physical restraints. She was found to be in diabetic ketoacidosis and subsequently being admitted to the hospital for appropriate management. 1. Diabetic ketoacidosis - the patient's acidosis is relatively mild. We will plan to admit to ICU at this time and place on an insulin drip. She has received adequate fluid resuscitation in the emergency department and will be maintained on maintenance fluids of normal saline with potassium chloride. We will obtain serial chemistries to monitor acidosis and anion gap. 2. Agitation - the patient is sedated at the time of evaluation. We will complete further history with the patient when she awakes. 3. Hypertension - the patient came into the emergency department quite hypertensive, but this is likely secondary to emotional stressors. Her blood pressure has improved dramatically now that she is calm, unsure of what her home medications include. We will work on medication reconciliation and monitor blood pressure closely. 4. Asthma - no evidence of acute exacerbation. 5. Code status - the patient is full code. 6. DVT prophylaxis - the patient is low risk based on her age. We will place her on SCDs as she will be on bedrest in the ICU at least for the immediate future. 7. Healthcare proxy is unknown. DISPOSITION: The patient is being admitted to inpatient status to the ICU. I anticipate length of stay to be greater than 2 midnights. RONEY RUBIO [id number]/[facility] #: [id number] NELL
[2017-02-06 11:42] LABS: Magnesium 1.9 mg/dL (1.9-2.7)
[2017-02-06 13:57] LABS: BUN/Creatinine Ratio 23.6 (8-20); Calcium 8.4 mg/dL (8.6-10.3); EGFR African American 173.2 (>60); EGFR Non-African American 134.7 (>60); Potassium 4.3 mmol/L (3.5-5.0)
[2017-02-06] MEDS ORDERED: NS 0.9% 1000 ML* 1,000 ML IV SCH (14:30)
[2017-02-06] MEDS ORDERED: Insulin GLARGINE(*) 1 UNITS UNIT SUBCUT SCH (15:00)
[2017-02-06] MEDS: Insulin LISPRO* 1 UNITS UNIT SUBCUT SCH ×2 (16:50→21:16)
[2017-02-07 05:04] LABS: Hematocrit 33 % (35-47); Hemoglobin 11.2 g/dl (12.0-16.0); Mean Corpuscular HGB Conc 34 g/dl (31-36); Mean Corpuscular Hemoglobin 30 pg (27-31); Mean Corpuscular Volume 90 fL (80-97); Mean Platelet Volume 9 um3 (7.4-10.4); Red Blood Count 3.69 10^6/ul (4.0-5.4); Red Cell Distribution Width 13 % (10.5-15); White Blood Count 7.9 10^3/ul (3.5-10.8)
[2017-02-07 05:28] LABS: BUN/Creatinine Ratio 22.2 (8-20); Calcium 8.1 mg/dL (8.6-10.3); EGFR African American 148.1 (>60); EGFR Non-African American 115.1 (>60); Potassium 3.6 mmol/L (3.5-5.0)
[2017-02-07] MEDS: Insulin LISPRO* 1 UNITS UNIT SUBCUT SCH ×2 (08:48→12:34)
[2017-02-07] MEDS ORDERED: Potassium Chlor TAB* 10 MEQ TAB.ER PO ONE (09:32)
--- NOTE | 2017-02-07 09:44 | DCNOTE ---
Subjective Date of Service: 02/07/17 Interval History: Patient seen and examined at bedside. Patient states she feels a whole lot better. Patient states she does not have any more insulin pens at home and she cannot afford the co-pay to meat pickler the ones she has at [facility]. Sugars controlled. Family History: Unchanged from Admission Social History: Unchanged from Admission Past Medical History: Unchanged from Admission Objective Active Medications: Insulin Glargine (Lantus(*)) 60 units SUBCUT Q24H ANGELY Insulin Human Lispro (Humalog*) 0 units SUBCUT ACHS ANGELY Potassium Chloride (Klor Con Er Tab*) 40 meq PO ONCE ONE Vital Signs Temp Pulse Resp BP Pulse Ox 98.4 F 101 16 165/95 99 02/07/17 04:05 02/07/17 04:05 02/07/17 04:05 02/07/17 04:05 02/07/17 04:05 Oxygen Devices in Use Now: None Appearance: sitting up in bed, NAD Eyes: No Scleral Icterus, PERRLA Ears/Nose/Mouth/Throat: NL Teeth, Lips, Gums Neck: NL Appearance and Movements; NL JVP Respiratory: Symmetrical Chest Expansion and Respiratory Effort, Clear to Auscultation Cardiovascular: NL Sounds; No Murmurs; No JVD, RRR Abdominal: NL Sounds; No Tenderness; No Distention Extremities: No Edema Skin: No Rash or Ulcers Neurological: Alert and Oriented x 3 Lines/Tubes/Other Access: Clean, Dry and Intact Peripheral IV Nutrition: Taking PO's Result Diagrams: 02/07/17 04:50 02/07/17 04:50 Additional Lab and Data: . Microbiology and Other Data: Microbiology 02/06/17 08:50 Nasal Screen MRSA (PCR)(OLIVIA) - Final Nasal Mrsa Negative Assess/Plan/Problems-Billing Pt is a 26 y/o F w/ hx of asthma,. HTN, insulin dependent DM who presented to the ED found to be acidotic with a blood sugar over 600. - Patient Problems (1) DKA (diabetic ketoacidosis) Comment: Resolved. Continue Lantus and Lispro. (2) HTN (hypertension) Comment: Restart home verapamil. (3) Asthma Comment: Stable. (4) DVT prophylaxis Comment: Ambulation (5) Full code status Status and Disposition: Inpatient. Discharge home later today.
[2017-02-07] MEDS ORDERED: Verapamil SR CAP* 180 MG PO ONE (09:49)
[2017-02-07 12:22] VITALS: BP 157/107
--- NOTE | 2017-02-08 02:59 | DS ---
CC: [facility]; Dr. Aguilar Rivera * DISCHARGE SUMMARY: DATE OF ADMISSION: 02/06/17 DATE OF DISCHARGE: 02/07/17 PRIMARY CARE PROVIDER: Dr. Aguilar Rivera, but the patient also says Sonia Thomas NP. ATTENDING PHYSICIAN: Dr. Aguilar Rivera * (report dictated by Karen Diana NP). PRIMARY DIAGNOSIS: Diabetic ketoacidosis. SECONDARY DIAGNOSES: 1. Hypertension. 2. Asthma. MEDICATIONS AT DISCHARGE: Resume the following medications the patient was on admission: 1. Levemir 70 units subcu daily. 2. Humalog 15 to 25 units subcu 3 times daily with meals. 3. Calan 180 mg oral daily. 4. Albuterol nebulizers every 6 hours as needed. 5. Lyrica 50 mg oral 3 times daily as needed for pain. 6. Pyridium 200 mg oral 3 times daily as needed. HISTORY OF PRESENT ILLNESS AND HOSPITAL COURSE: Ms. Lora is a 26-year-old poorly controlled type 1 diabetic, as well as hypertension, history of hypertension and asthma, who presented to the emergency room on 02/06/17, quite combative and found to have a blood sugar of 611. The patient was also found to be slightly acidotic. The patient was admitted to the intensive care unit for insulin drip and aggressive fluid resuscitation. With the insulin drip, the patient's sugar normalized quite quickly and by 1:00 p.m., on the day of admission, the patient's anion gap was closed and she was transitioned to Lantus. After she was given 60 units of Lantus, her blood sugars remained between 150 and 190. Lispro coverage was given for additional control. The patient's laboratory work remained stable on the morning of 02/07/17 and she was stable for discharge. Upon further questioning with the patient, the patient states she no longer has any money to afford her insulin pens. She cannot even afford the 30 dollar co-pay for her pens. Today, she would be provided with pens obtained from [facility]'s outpatient office of Lantus as well as lispro and pen needles. The patient states she has prescriptions at [facility] that in a month she will have the money to pecan picker to continue to give her insulin. The patient states she currently sees Sonia Thomas NP, Family Medicine, and agrees to follow up there. The patient was restarted on her home verapamil as her blood pressure was elevated during the hospitalization. PHYSICAL EXAM: On 02/07/17, vitals were as follows: Temperature 94, heart rate 101, respiratory rate 15, blood pressure 165/95 prior to verapamil administration. Blood sugar was stable at 150. At this point, the patient was stable for discharge. DISCHARGE PLAN: The patient is discharged on a consistent carb diet. The patient has been instructed to restart her home dose of Levemir. The patient should give herself a dose this afternoon at 5:00 p.m., and gradually stretch the dose out so that she can return to administering it at bedtime. The patient should return to the hospital if she there is any notification on her blood sugar monitor that her blood sugar is high. The patient should follow up with Sonia Thomas NP, Family Medicine, within 4 to 7 days. I have reviewed all the instructions with the patient and she is agreeable with the discharge today. This is a summarized report of the complex medical history and hospital stay. For more details, please see the entire medical record. TIME SPENT: Time for this discharge was 60 minutes, and 35 minutes was spent with the patient discussing medications at discharge and followup instructions. CONDITION ON DISCHARGE: Stable. KAREN DIANA NP [id number]/[facility] #: [id number] NELL
== END 2017-02-07 13:20 | disposition home or self-care (01) ==
LOC: ED 04:26 → ICU 07:30 → INTOOBSV 07:30 → SSU 17:45
PROVIDERS: ADMIT Physician Assistant; ATTEND Internal Medicine
DX: E10.10 Type 1 diabetes mellitus with ketoacidosis without coma (principal); Z79.4 Long term (current) use of insulin; I10 Essential (primary) hypertension; J45.909 Unspecified asthma, uncomplicated; Z79.899 Other long term (current) drug therapy; F17.210 Nicotine dependence, cigarettes, uncomplicated; R45.1 Restlessness and agitation; E78.00 Pure hypercholesterolemia, unspecified; F10.129 Alcohol abuse with intoxication, unspecified; R00.0 Tachycardia, unspecified
CPT/HCPCS: 36415; 71010; 80048; 80053; 80307; 80320; 80329; 81003; 81015; 82803; 82947; 83605; 83735; 84443; 84702; 85025; 86140; 87641; 93005; 96361; 96374; 99285; A9270-GY; G0378; G0480; J0153; J1200; J1630; J1815; J2060

== ENCOUNTER 2017-03-02 13:18 | Emergency (ER) | payer BC ==
[2017-03-02 15:38] LABS: Urine Appearance Clear; Urine Blood 1+ (Negative); Urine Color Straw; Urine Ketones 1+ (Negative); Urine Protein 2+(100 mg/dL) (Negative); Urine Specific Gravity 1.028 (1.010-1.030); Urine Urobilinogen Negative (Negative)
[2017-03-02] MEDS ORDERED: NS 0.9% 1000 ML* 1,000 ML IV ONE (16:50)
[2017-03-02] MEDS ORDERED: Ciprofloxacin TAB* 500 MG PO ONE (16:51)
[2017-03-02] MEDS ORDERED: Insulin REGULAR(*) 1 UNITS UNIT SUBCUT ONE (16:52)
[2017-03-02] MEDS ORDERED: NS 0.9% 1000 ML* 2,000 ML IV ONE (16:54)
--- NOTE | 2017-03-02 17:00 | ED ---
GI/ HPI - HPI Summary HPI Summary: Poorly controlled hypertensive, type 1 diabetic pt here w/ what she feels are early signs of a UTI - has pressure with urination and increased frequency but denies dysuria, fever, chills, N/V/D, flank pain. Uses insulin at home to control blood glucose levels which she reports typically run in the 200's. Has not checked today. Also admits BP has been poorly controlled past couple of months despite taking verapamil. Received clonidine once in the past here and felt it helped - was a one time dose and she never followed up with PCP to let them know this worked well. She reports she's told her PCP her BP is poorly controlled and they have not changed her meds. Spoke w/ Dr. Dennis who reports pt is non-compliant -has not been seen since summer despite being admitted here. Has not had f/u since and so was d/c'd from his practice d/t "no-shows/no- calls". She admits to WILLIAMSON's at times w/ elevated BP's however does not have any symptoms here today including WILLIAMSON, chest pain, SOB. - History of Current Complaint Chief Complaint: EDUrogenitalProblems Time Seen by Provider: 03/02/17 14:19 Stated Complaint: POSS UTI Hx Obtained From: Patient Hx Last Menstrual Period: 08/20/16 Pain Intensity: 0 - Additional Pertinent History Primary Care Physician: [id number] - Allergy/Home Medications Allergies/Adverse Reactions: Allergies Allergy/AdvReac Type Severity Reaction Status Date / Time Shellfish Allergy Allergy Anaphylatic Verified 03/02/17 13:35 Shock PMH/Surg Hx/FS Hx/Imm Hx Previously Healthy: No - poorly controlled type 1 diabetes and HTN Endocrine/Hematology History: Reports: Hx Diabetes Denies: Hx Anemia Cardiovascular History: Reports: Hx Hypercholesterolemia - no meds, Hx Hypertension - no meds, poorly controlled Denies: Hx Aneurysm, Hx Angina, Hx Angioplasty, Hx Auto Implanted Cardiovert Defib, Hx Pacemaker/ICD Respiratory History: Reports: Hx Asthma - worse w/ cold air exposure and when she has tachycardia GI History: Denies: Hx Jaundice History: Reports: Other Problems/Disorders - dysmenorrhea, "clots" Sensory History: Denies: Hx Contacts or Glasses - unknown, Hx Hearing Aid - none present Opthamlomology History: Denies: Hx Contacts or Glasses - unknown Neurological History: Reports: Hx Migraine - optical migraines Denies: Hx Dementia, Hx Developmental Delay, Hx Headaches, Hx Nerve Disease, Hx Seizures, Hx Spinal Cord Injury, Hx Transient Ischemic Attacks (TIA), Other Neuro Impairments/Disorders Psychiatric History: Reports: Hx Anxiety, Hx Depression Denies: Hx Panic Disorder - Cancer History Hx Chemotherapy: No Hx Radiation Therapy: No Hx Palliative Cancer Treatment: No - Surgical History Surgery Procedure, Year, and Place: cyst removal from skin of face and skin of lower back Hx Anesthesia Reactions: No - Immunization History Date of Tetanus Vaccine: UTD Date of Influenza Vaccine: UTD Infectious Disease History: Unable to Obtain/Confirm Infectious Disease History: Denies: Hx Clostridium Difficile, Hx Hepatitis, Hx Human Immunodeficiency Virus (HIV), Hx of Known/Suspected MRSA, Hx Shingles, Hx Tuberculosis, History Other Infectious Disease, Traveled Outside the [place] in Last 30 Days - Family History Known Family History: Positive: Cardiac Disease, Diabetes, Other - Mom - lupus - Social History Alcohol Use: unable to answer Alcohol Amount: a lot Hx Substance Use: No - pt denies drug use tonight Substance Use Type: Reports: None, Other Hx Tobacco Use: Yes Smoking Status (MU): Current Every Day Smoker Type: Cigarettes Amount Used/How Often: 3 cigs per day Have You Smoked in the Last Year: No Physical Exam Vital Signs On Initial Exam: Initial Vitals Temp Pulse Resp BP Pulse Ox 98.7 F 114 15 150/101 99 03/02/17 13:32 03/02/17 13:32 03/02/17 13:32 03/02/17 13:32 03/02/17 13:32 Diagnostics - Vital Signs Vital Signs Temp Pulse Resp BP Pulse Ox 03/02/17 13:32 98.7 F 114 15 150/101 99 - Laboratory Lab Results: Lab Results 03/02/17 Range/Units 14:25 Urine Color Straw Urine Appearance Clear Urine pH 6.0 (5-9) Ur Specific [place] 1.028 (1.010-1.030) Urine Protein 2+(100 mg/dl) H (Negative) Urine Ketones 1+ H (Negative) Urine Blood 1+ H (Negative) Urine Nitrate Negative (Negative) Urine Bilirubin Negative (Negative) Urine Urobilinogen Negative (Negative) Ur Leukocyte Esterase Negative (Negative) Urine WBC (Auto) Trace(0-5/hpf) (Absent) Urine RBC (Auto) Trace(0-2/hpf) (Absent) Ur Squamous Epith Cells Present H (Absent) Urine Bacteria Absent (Absent) Urine Glucose 3+(>=500 mg/dl) H (Negative) Result Diagrams: 03/02/17 17:00 03/02/17 17:00 Lab Statement: Any lab studies that have been ordered have been reviewed, and results considered in the medical decision making process. GIGU Course/Dx - Course Course Of Treatment: Pt presents w/ mild UTI sx - otherwise feeling fine. Hoping to be d/c'd [facility] as she works nights at assisted. Discussed w/ Dr. Nunez. Advised re-evaluation of HR - went from 114bpm to 96bpm at rest. POC glucose was 413. This is high for pt (typically runs in 200's). Encouraged and explained further tx and w/u is necessary at this time as she has health issues that could turn her UTI into something more serious quickly (namely poorly controlled type 1 diabetes). She would like to leave [facility] as she wants to go to work tonight but she agrees to stay for IV fluids and will initiate tx of UTI now with PO cipro as well as insulin 10units subcutaneously. Will review labs and recheck HR, glucose after tx's. If no DKA, no signs of systemic infection and toelrates IVF and insulin well with reduction of glucose into 200's, may consider d/c home w/ danger s/sx of when to return to ED. Also discussed importance of blood pressure control through PCP. Since she does not have a PCP at this time, she agrees to call endocrinology tomorrow for BP control - at least needs ANTHONY inhibitor for renal protection/HTN unless this is contraindicated for her. May need other meds as well however this needs to be titrated over time through a consistent provider's care. Explained dangers of neglecting this medical issue - pt voices understanding and agrees w/ plan. Signed out to Sheila Rosario PA-C - Diagnoses Provider Diagnoses: UTI (urinary tract infection), Dehydration, Type 1 diabetes mellitus, HTN ( hypertension) Discharge - Discharge Plan Referrals: Aguilar Rivera MD [Primary Care Provider] -
[2017-03-02 17:40] LABS: ABS Basophils 0.1 10^3/ul (0-0.2); ABS Eosinophils 0.1 10^3/ul (0-0.6); ABS Lymphocytes 2.4 10^3/ul (1.0-4.8); ABS Monocytes 0.6 10^3/ul (0-0.8); ABS Neutrophils 5.6 10^3/ul (1.5-7.7); ABS Nucleated RBC 0 10^3/ul; Eosinophil % 1.5 % (0-6); Hematocrit 39 % (35-47); Hemoglobin 13.5 g/dl (12.0-16.0); Lymphocyte % 27.5 % (25-47); Mean Corpuscular HGB Conc 34 g/dl (31-36); Mean Corpuscular Hemoglobin 31 pg (27-31); Mean Corpuscular Volume 89 fL (80-97); Mean Platelet Volume 9 um3 (7.4-10.4); Nucleated Red Blood Cells % 0.1; Platelet Count 369 10^3/ul (150-450); Red Blood Count 4.38 10^6/ul (4.0-5.4); Red Cell Distribution Width 13 % (10.5-15); White Blood Count 8.8 10^3/ul (3.5-10.8)
[2017-03-02 17:51] LABS: EGFR Non-African American 119.5 (>60)
[2017-03-02] MEDS ORDERED: Verapamil SR TAB* 240 MG PO ONE (19:31)
--- NOTE | 2017-03-02 19:48 | PN ---
Progress Note - Progress Note Date of Service: 03/02/17 Note: signed out by Yakelin SIM pending fluids and labs. Glucose was 429 and Na and Cl were low, no anion gap, normal blood gas so patient just has hyperglycemia, gave three liters and glucose was 332 which is about patient normal so will discharge home. gave dose of verapamil here as patient did not take it today and blood pressure decreased 164/98 at discharge. she denies any chest pain, SOB, or headache or visual changes. discussed needs to est care with primary to follow up about blood pressure. will discharge on cipro for uti. patient understand and agrees with plan. Diagnosis: uti, hyperglycemia, elevated blood pressure condition:Stable Disposition: home
[2017-03-02 21:35] VITALS: BP 164/98
== END 2017-03-02 21:34 | disposition home or self-care (01) ==
LOC: ED 13:18
DX: N39.0 Urinary tract infection, site not specified (principal); I10 Essential (primary) hypertension; E10.65 Type 1 diabetes mellitus with hyperglycemia; F17.210 Nicotine dependence, cigarettes, uncomplicated
CPT/HCPCS: 36415; 80053; 81003; 81015; 82803; 83605; 85025; 86140; 96360; 96372; 99282; A9270-GY